=== PATIENT | female | born 2000 | race Caucasian/White ===

== ENCOUNTER 2020-12-18 03:25 | Emergency (ER) | payer SELFPAY ==
[~2020-12-18] VITALS: Ht 154.9 cm; Wt 70.9 kg
[2020-12-18] MEDS ORDERED: albuterol 2.5 MG/3 ML nebule NEB ONE (03:35)
[2020-12-18] MEDS ORDERED: dexamethasone 4mg tablet PO ONE ×2 (03:35)
[2020-12-18] MEDS ORDERED: DEXAMETHASONE 6 MG TABLET PO ONE (03:35)
[2020-12-18 04:19] LABS: D-DIMER 0.54 MG/L FEU (0-0.50)
[2020-12-18] MEDS ORDERED: iohexol 350MG/ML 100ml bottle IV ONE (04:38)
[2020-12-18 05:04] LABS: HCG SERUM QL NEGATIVE
[2020-12-18 05:53] VITALS: BP 108/67
== END 2020-12-18 06:27 | disposition home or self-care (01) ==
LOC: ER 03:27
DX: J45.909 Unspecified asthma, uncomplicated (principal); R06.02 Shortness of breath; R09.81 Nasal congestion; R05 Cough
CPT/HCPCS: 36415; 71275; 84703; 85379; 99285; Q9967; 94760; J8540

== ENCOUNTER 2021-09-14 23:33 | Emergency (ER) | payer OTHER ==
[~2021-09-14] VITALS: Ht 154.9 cm; Wt 65.0 kg
[2021-09-14 23:38] VITALS: BP 117/75
--- NOTE | 2021-09-15 01:04 | NUR ---
pt ambulated with steady gate to ft18 with no visual signs of distress or discomfort.
== END 2021-09-15 04:08 | disposition home or self-care (01) ==
LOC: ER 23:49
DX: S00.81XA Abrasion of other part of head, initial encounter (principal); M54.2 Cervicalgia; M54.59 Other low back pain; V87.7XXA Person injured in collision between other specified motor vehicles (traffic), initial encounter; Y93.89 Activity, other specified; Y92.89 Other specified places as the place of occurrence of the external cause; Y99.8 Other external cause status
CPT/HCPCS: 99284

== ENCOUNTER 2021-09-23 03:28 | Emergency (ER) | payer OTHER ==
[~2021-09-23] VITALS: Ht 154.9 cm; Wt 63.6 kg
[2021-09-23] MEDS ORDERED: ibuprofen 200mg tablet PO ONE (04:40)
[2021-09-23] MEDS ORDERED: pantoprazole 40mg Tablet.DR PO ONE (04:40)
[2021-09-23] MEDS ORDERED: ondansetron 4mg rapidly disintigrating tab PO ONE (04:40)
[2021-09-23 05:16] LABS: HEMOGLOBIN 12.3 g/dl (12.0-16.0); MEAN PLATELET VOLUME 8.3 FL (7.4-10.4); RED CELL DISTRIBUTION WIDTH 12.2 % (11.5-14.5)
[2021-09-23 05:17] LABS: BASOPHILS % (AUTO) 0.3 % (0-1); EOSINOPHILS % (AUTO) 0.3 % (0-6); HEMATOCRIT 36.4 % (35.0-45.0); LYMPHOCYTES # (AUTO) 1.3 X10'3 (1.1-4.8); LYMPHOCYTES % (AUTO) 10.5 % (21-51); MEAN CORPUSCULAR HEMOGLOBIN 31.5 PG (27.0-31.0); MEAN CORPUSCULAR HGB CONC 33.9 g/dL (33.0-36.5); MONOCYTES # (AUTO) 1.3 X10'3 (0-0.9); MONOCYTES % (AUTO) 10.5 % (2-12); NEUTROPHILS # (AUTO) 9.8 X10'3 (1.8-7.7); NEUTROPHILS % (AUTO) 78.4 % (42-75); PLATELET COUNT 214 X10'3 (140-440); RED BLOOD COUNT 3.91 X10'6 (4.20-5.60); WHITE BLOOD COUNT 12.6 X10'3 (4.5-11.0)
[2021-09-23 05:35] LABS: CLARITY,URINE CLEAR (Clear); COLOR,URINE YELLOW (Yellow); GLUCOSE, URINE NEGATIVE (Neg); KETONES,URINE 15 mg/dl (Neg); LEUKOCYTE ESTERASE ,URINE NEGATIVE (Neg); NITRITES, URINE NEGATIVE (Neg); OCCULT BLOOD,URINE TRACE-INTACT (Neg); PROTEIN,URINE NEGATIVE (Neg); UROBILINOGEN,URINE 0.2 E.U/dL (0.2-1.0)
[2021-09-23 05:40] LABS: ALANINE AMINOTRANSFERASE 30 U/L (12-78); ALBUMIN 3.9 G/DL (3.4-5.0); ALBUMIN/GLOBULIN RATIO 1.2 (1.1-1.5); ALKALINE PHOSPHATASE 67 IU/L (20-180); ANION GAP 10 (8-16); ASPARTATE AMINO TRANSFERASE 16 U/L (10-37); BILIRUBIN,TOTAL 1.3 MG/DL (0.1-1.0); BLOOD UREA NITROGEN 12 MG/DL (7-18); BUN/CREATININE RATIO 14.1 (6.6-38.0); CALCIUM 8.8 MG/DL (8.5-10.1); CHLORIDE 106 MMOL/L (99-107); CREATININE 0.85 MG/DL (0.40-0.90); GLUCOSE 111 MG/DL (70-104); POTASSIUM 3.5 MMOL/L (3.5-5.1); SODIUM 139 MMOL/L (135-145); TOTAL CARBON DIOXIDE 22.7 MMOL/L (24-32); TOTAL PROTEIN 7.1 G/DL (6.4-8.2); eGFR 85 ML/MIN
[2021-09-23 05:45] LABS: UA COLLECTION TYPE CLN CATCH MIDSTREAM
[2021-09-23 05:47] LABS: BACTERIA,URINE FEW /HPF (Neg); MUCUS STRANDS MANY /LPF (Neg); RBC,URINE 0-2 /HPF (0-2); SQUAMOUS EPITHELIAL CELL,UR MODERATE /LPF (FEW)
[2021-09-23 06:51] VITALS: BP 98/70
[2021-09-23] MEDS ORDERED: IBUP-1984 PO (07:43)
== END 2021-09-23 06:53 | disposition home or self-care (01) ==
LOC: ER 03:28
DX: J06.9 Acute upper respiratory infection, unspecified (principal); Z20.822 Contact with and (suspected) exposure to COVID-19; F17.200 Nicotine dependence, unspecified, uncomplicated; J45.909 Unspecified asthma, uncomplicated
CPT/HCPCS: 36415; 71046; 80053; 81001; 85025; 87081; 87088; 87502; 87503; 87635; 87880; 93005; 99285; C9803

== ENCOUNTER 2022-03-11 21:47 | Emergency (ER) | payer OTHER ==
[~2022-03-11] VITALS: Ht 154.9 cm; Wt 61.0 kg
[2022-03-11 23:05] LABS: CLARITY,URINE SLIGHTLY CLOUDY (Clear); COLOR,URINE YELLOW (Yellow); GLUCOSE, URINE NEGATIVE (Neg); KETONES,URINE 15 mg/dl (Neg); LEUKOCYTE ESTERASE ,URINE TRACE (Neg); NITRITES, URINE NEGATIVE (Neg); OCCULT BLOOD,URINE MODERATE (Neg); PROTEIN,URINE NEGATIVE (Neg); URINE HCG NEGATIVE (NEG); UROBILINOGEN,URINE 0.2 E.U/dL (0.2-1.0)
[2022-03-11 23:06] LABS: UA COLLECTION TYPE NON-SPECIFIED
[2022-03-11 23:12] LABS: BACTERIA,URINE 2+ /HPF (Neg); MUCUS STRANDS FEW /LPF (Neg); SQUAMOUS EPITHELIAL CELL,UR MODERATE /LPF (FEW)
[2022-03-11 23:13] LABS: TRANSITIONAL EPI CELLS,URINE FEW /HPF
[2022-03-12] VITALS: BP 123/67
== END 2022-03-12 00:04 | disposition home or self-care (01) ==
LOC: ER 21:47
DX: N89.8 Other specified noninflammatory disorders of vagina (principal); R10.30 Lower abdominal pain, unspecified; J45.909 Unspecified asthma, uncomplicated
CPT/HCPCS: 81001; 81025; 87088; 99283